=== PATIENT | male | born 1990 | race African-American/Black ===

== ENCOUNTER 2019-03-01 23:22 | Emergency (ER) | payer OTHER, SELFPAY ==
--- NOTE | 2019-03-01 00:10 | DI.RAD_ITS ---
SYMPTOM/DIAGNOSIS: FALL, PAIN IN DIST RAD/ULNA, AND SNUFF BOX. LEFT FOREARM AND LEFT WRIST: 03/01 Four views of the wrist and 2 views of the forearm were obtained. There is an apparent small fracture fragment projected adjacent to the dorsum of the junction of the proximal and distal carpal rows. This may originate from the capitate or hamate but I cannot confirm the exact location of this fracture. Otherwise, the bones appear intact and alignment is within normal limits. No fracture is seen involving the radius or ulna. CONCLUSION: Dorsal carpal fracture fragment, origin uncertain. If clinically indicated additional evaluation with CT can be considered.
--- NOTE | 2019-03-01 00:10 | DI.RAD_ITS ---
SYMPTOM/DIAGNOSIS: FALL, LATERAL KNEE PAIN LEFT KNEE: 03/01 Four views were obtained. No fracture is seen.
[2019-03-01 23:30] VITALS: BP 152/106; PULSE 106; RESP 18; TEMP 36.7; O2SAT 94
[2019-03-01] MEDS: Ibuprofen 800 MG TAB PO (23:40)
[2019-03-01] MEDS: Acetaminophen 500 MG TAB 1000 MG PO (23:41)
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
== END 2019-03-02 01:07 | disposition home or self-care (01) ==
LOC: ER 03-02 01:16
PROVIDERS: Emergency Provider Student in an Organized Health Care Education/Training Program
DX: S62.102A Fracture of unspecified carpal bone, left wrist, initial encounter for closed fracture (principal); M25.562 Pain in left knee; V86.56XA Driver of dirt bike or motor/cross bike injured in nontraffic accident, initial encounter
CPT/HCPCS: 25630; 29505; 73562; 99283; 73090; 73110; 99281; E0114; L1810; L3908

== ENCOUNTER 2022-02-22 23:36 | Emergency (ER) | payer SELFPAY ==
[2022-02-22 23:43] VITALS: BP 171/110; PULSE 83; RESP 16; TEMP 36.3; O2SAT 97
[2022-02-22 23:54] VITALS: BP 157/109
--- NOTE | 2022-02-23 00:08 | ED.GENADUL_ITS ---
Discharge Plan Disposition Patient Disposition: HOME Condition: Stable Discharge Details Clinical Impression: Pustule Primary Care Provider: Clemencia,Local ED Provider: Carlotta Ryder Home Meds and New Rx's Prescriptions: Continued naproxen sodium [Aleve] 220 mg capsule 220 mg PO BID PRN Discharge Instructions Instructions: Blister (ED) Additional Instructions: The cause of your rash is unclear at this time. It may be due to an inflammatory reaction to your tattoo that has become secondarily infected and spread. You were given a prescription antibiotic ointment called mupirocin to apply to the area twice daily on clean and dry skin. You have been placed on care management list to arrange for a follow-up appointment with a primary care doctor to establish care and for reevaluation. Return immediately to the emergency department if you develop any worsening or new concerning symptoms such as fever, body aches, chills, worsening rash or any other concerns. Discharge Data Discharge Physician: Carlotta Ryder Medical Decision Making 32-year-old male presents with mildly tender pustules and crusts noted to his abdomen and left forearm. Blood pressure hypertensive on arrival at 171/110, slightly improved to 157/109. He otherwise is nontoxic-appearing and comfortable. Normal oropharynx. Lungs clear. He has 4 x 4 millimeter crusted pustules and scaling noted on mostly his abdomen and overlying the eyes of the tiger tattoo on his right side of his abdomen in addition to his left forearm. As they are somewhat tender, would suspect secondary bacterial infection. History and presentation does not appear consistent with mild hypoxia as he had no systemic prodrome or report of recent travel. Do not feel indication for lab work at this time. We will treat as a bacterial skin infection with topical mupirocin at this time. Discussed with patient I do not see an indication for oral antibiotics or steroids at this time. Patient placed on care management list to arrange for follow-up appointment with the primary care doctor to establish care and for reevaluation of his lesions and blood pressure. Usual and customary return precautions given prior to discharge. Medical Records Medical records reviewed: Yes I reviewed the patient's medical records. HPI General Mode of arrival: ambulatory . Date/Time Provider Initiated Documentation: 02/22/22 23:53 . Limitations to Documentation: no limitations . Information obtained by: patient . HPI Narrative: Patient is a 32-year-old male presents with mildly tender lesions noted on his abdomen and now left forearm for the past couple weeks. Patient states he first noted tender red bumps located over the eyes of a tiger tattoo that he had placed 2 weeks ago. He states these areas then became larger and dried up and are still mainly only painful to touch. He states since then he has developed similar red bumps on other locations of his abdomen and left forearm that have also now become dried and scaling. He states recently some of these areas have had yellow pus draining from them. He denies any fever, body aches, chills, ear pain, sore throat, nausea, vomiting, diarrhea. He denies any recent travel or known exposure to monkey pox. He denies any new soaps, lotions, detergents or any other new exposures. Related Data Home Medications Medication Instructions Recorded Confirmed naproxen sodium 220 mg capsule 220 mg PO BID PRN 12/20/19 02/22/22 (Aleve) Allergies Allergy/AdvReac Type Severity Reaction Status Date / Time No Known Allergies Allergy Verified 02/22/22 23:47 General Stated Complaint: Cellulitis JOYCELYN: 4 Review of Systems All systems reviewed & are unremarkable except as noted in HPI and below Constitutional Constitutional: Denies chills, Denies excessive sweating, Denies fatigue, Denies fever(s), Denies weakness and Denies weight loss Eyes Eyes: Reports system reviewed and no additional complaints, except as documented and Denies blurry vision ENT Ears, Nose, Mouth, and Throat: Denies vertigo, Denies dizziness, Denies otalgia, Denies nasal congestion, Denies sore throat and Denies throat swelling Cardiovascular Cardiovascular: Denies chest pain, Denies syncope, Denies rapid heart rate and Denies dyspnea Respiratory Respiratory: Denies chest congestion, Denies cough, Denies pain on inspiration and Denies dyspnea Gastrointestinal Gastrointestinal: Denies abdominal pain, Denies diarrhea and Denies vomiting Genitourinary Genitourinary: Denies hematuria, Denies dysuria and Denies flank pain Musculoskeletal Musculoskeletal: Denies back pain and Denies joint swelling Integumentary/Breasts Skin/Breast: Reports lesions and Reports rash Neurologic Neurologic: Denies behavioral changes, Denies confusion, Denies vertigo, Denies dizziness, Denies syncope, Denies localized weakness and Denies weakness Psychiatric Psychiatric: Denies behavioral changes, Denies confusion and Denies depression Endocrine Endocrine: Denies excessive sweating and Denies fatigue Hematologic/Lymphatic Hematologic/Lymphatic: Denies easy bruising and Denies lymphadenopathy Allergic/Immunologic Allergic/Immunologic: Denies throat swelling PFSH All Active Problems (Updated 02/23/22 @ 00:12 by Carlotta Ryder DO) Pustule (Acute) Back pain (Acute) s/p slip and fall. Workers' Compensation case. Avulsion fracture of left wrist (Acute ~03/02/19) Social History Smoking/Tobacco Use Status: Former Tobacco Use Quit status: not considering quitting Smoking risk assessment performed?: Yes Drug use: Occasionally Substance use type: marijuana Details: couple times a week Do you feel safe at home: Yes Do you feel safe in your relationship?: Yes Exam Const General: cooperative and healthy appearing Orientation: alert, awake and oriented x3 HENMT Head: normal to inspection Ears: hearing grossly normal bilaterally and external ears normal General nose exam: external nose normal Face and sinus: normal facial exam Mouth: oral mucosae normal Teeth and gingiva: dentition normal Throat: posterior oropharynx normal Eyes General: appearance normal, both eyes and all related structures Eyelids: eyelids normal Pupils: PERRL EOM: EOM intact bilaterally Neck Neck: normal visual inspection Lymphatic: no lymphadenopathy noted Chest Chest: normal inspection of the chest Resp Effort & Inspection: normal respiratory effort and able to speak in complete sentences Auscultation: clear to auscultation bilaterally Cardio Rate: regular rate Rhythm: regular rhythm GI Inspection: normal to inspection Palpation: soft, not firm, no guarding, no hepatosplenomegaly, no masses and nontender Auscultation: normal bowel sounds Back/Spine/Pelvis Back: no CVA tenderness Skin Other: 4 x 4 millimeter pustules, some with overlyng crust and others more dried and scaling located mostly on the abdomen, but also on the left forearm. Neuro General: patient alert and patient awake Cognition: normal cognition Speech: speech normal Gait: normal gait Motor: muscle tone normal throughout Sensory Exam: no sensory deficits noted Extrem General: normal to inspection, full ROM and capillary refill normal Psych Appearance: grossly normal Mental Status: mental status grossly normal Speech and Movement: speech and movement normal Affect: normal affect Thought Process: normal Course Vital Signs Vital signs: Vital Signs Temperature 97.3 F L 02/22/22 23:43 Pulse 83 02/22/22 23:43 Respiratory Rate 16 02/22/22 23:43 Blood Pressure 171/110 H 02/22/22 23:43 Pulse Oximetry 97 02/22/22 23:43 Temperature 97.3 F L 02/22/22 23:43 Temperature Source Skin 02/22/22 23:43 Pulse 83 02/22/22 23:43 Respiratory Rate 16 02/22/22 23:43 Respiratory Effort Non-Labored 02/22/22 23:48 Blood Pressure 157/109 H 02/22/22 23:54 Pulse Oximetry 97 02/22/22 23:43 Pain Level 10 02/22/22 23:43
--- NOTE | 2022-02-23 01:11 | NUR.NOTE ---
Referral to Care Management to establish pcp for f/u for hypertension and a rash in a couple of weeks.Nursing Note:
--- NOTE | 2022-02-26 09:33 | PDOC.ERCMACT ---
- If Service Date Differs Date of service: 02/26/22 Time of Service: 09:33 Care Management Activity Note John is seen in the ED for a pustule. At the request of ED provider, CM coordinates a referral to HELADIO Reid, of [facility], on-call provider, to assist John in obtaining a follow up appointment and in establishing care with a PCP.
== END 2022-02-23 00:22 | disposition home or self-care (01) ==
PROVIDERS: Emergency Provider Physician Assistant
DX: L08.9 Local infection of the skin and subcutaneous tissue, unspecified (principal); R03.0 Elevated blood-pressure reading, without diagnosis of hypertension; Z87.891 Personal history of nicotine dependence
CPT/HCPCS: 99283; 99284

== ENCOUNTER 2024-09-07 02:22 | Emergency (ER) | payer MEDICAID, SELFPAY ==
[2024-09-07 02:35] VITALS: BP 185/97; PULSE 94; RESP 18; TEMP 37.7; O2SAT 98
--- NOTE | 2024-09-07 03:09 | W.ED.GENAD ---
Discharge Plan Disposition Patient Disposition: Home Condition: Good Discharge Details Clinical Impression: Dermatitis, Cellulitis of both feet Primary Care Provider: Clemencia,Local ED Provider: Guy Javier Home Meds and New Rx's Prescriptions: New prednisone 50 mg tablet 50 mg PO DAILY Qty: 5 0RF hydroxyzine HCl 25 mg tablet 25 mg PO TID PRNQty: 60 0RF clotrimazole-betamethasone 1-0.05 % cream 1 applic topical BID Qty: 15 0RF cephalexin 500 mg tablet 500 mg PO QID 7 Days Qty: 28 0RF Discontinued fluconazole 150 mg tablet 150 mg PO .q6 weeks Patient Comments: TAKE ONE TABLET BY MOUTH ONCE WEEKLY FOR 6 WEEKS No Action naproxen sodium [Aleve] 220 mg capsule 220 mg PO BID PRN permethrin 5 % cream 1 applic TOPICAL Q4D Patient Comments: APPLY TOPICALLY, LEAVE ON FOR 12-14 HOURS THEN RINSE OFF. REPEAT TREATMENT EVERY 4 DAYS UNTIL DONDITION RESOLVED Discharge Instructions Instructions: Skin Rash ED Additional Instructions: At this time I am concerned that you have evidence of notable contact dermatitis. Thankfully there is no current evidence to suggest scabies. Please take the steroid as directed. Is been sent to your pharmacy on file. Please apply the steroid antifungal cream to your feet twice daily. Please take the hydroxyzine/Atarax for itching. Please take the Keflex antibiotic for the superimposed bacterial infection on your feet. Please avoid any other topical irritants at this time. If your symptoms or not improving in the next 4 to 5 days, please contact me at the emergency department and we can formulate a new plan together. If you notice any worsening of your symptoms, or any new symptoms such as vomiting, diarrhea, fever, chills, shortness of breath, chest pain, numbness, weakness, or fainting , please return immediately to the emergency department for reevaluation. Please follow up with your primary care provider as soon as possible for reassessment and reevaluation. As always, it was a pleasure participating in your medical care today. Discharge Data Discharge Date/Time-TO BE ENTERED AT DEPARTURE: 09/07/24 03:35 HPI General Date/Time Provider Initiated Documentation: 09/07/24 03:08. HPI Narrative: 34-year-old male presents today for evaluation of rash. Patient denies any significant past medical history. Patient states that on August 27 he developed a mild rash on his feet only. No rash anywhere else. He went to urgent care and was diagnosed with scabies. (Of note he had not been out of the country, he is a [place], but has never been diagnosed with scabies before. Significant others in his home do not have any similar rash.) He was prescribed permethrin, and took the first topical dose of this over his entire body. He states about 12 hours after the application of the permethrin he had extreme itching all over his body, and developed welts and blisters in the areas of his tattoos which are quite numerous. Symptoms slowly improved over the next few days, and then 5 days later for the scheduled repeat dose of permethrin he again did a total body coverage of the medication and ago developed notable rash with welting and blisters around his tattoos, extreme itching over all of his body, and worsening rash on his feet. On the he went to urgent care again as his symptoms were worsening and he was diagnosed with a fungal infection of his feet, and given a prescription/order for fluconazole. Patient states that despite this the rash on his feet continues to worsen, and he is now getting more blisters and welts on his feet, and additionally nothing is improving on the rest of his skin. He has been using gasoline topically, and he states that this will help the symptoms for a few minutes and then the itching immediately comes back. Related Data Home Medications ?Medication ?Instructions ?Recorded ?Confirmed naproxen sodium 220 mg capsule 220 mg PO BID PRN 12/20/19 09/07/24 (Aleve) cephalexin 500 mg tablet 500 mg PO QID 7 days #28 tabs 09/07/24 clotrimazole-betamethasone 1 1 applic topical BID #15 grams 09/07/24 %-0.05 % topical cream hydroxyzine HCl 25 mg tablet 25 mg PO TID PRN #60 tabs 09/07/24 permethrin 5 % topical cream 1 applic topical Q4D 09/07/24 09/07/24 prednisone 50 mg tablet 50 mg PO DAILY #5 tabs 09/07/24 Previous Rx's ?Medication ?Instructions ?Recorded cephalexin 500 mg tablet 500 mg PO QID 7 days #28 tabs 09/07/24 clotrimazole-betamethasone 1 1 applic topical BID #15 grams 09/07/24 %-0.05 % topical cream hydroxyzine HCl 25 mg tablet 25 mg PO TID PRN #60 tabs 09/07/24 prednisone 50 mg tablet 50 mg PO DAILY #5 tabs 09/07/24 Allergies Allergy/AdvReac Type Severity Reaction Status Date / Time No Known Allergies Allergy Verified 09/07/24 02:41 General Stated Complaint: RashLesion JOYCELYN: 4 Exam Narrative Exam Narrative: 1.Const: Well-nourished, Well-developed, appearing stated age 2.Eyes: PERRL, no conjunctival injection, and symmetrical lids. 3.ENT: Atraumatic external nose and ears. Moist MM. Neck: Symmetric, trachea midline, No thyromegaly. 4.CVS: +S1/S2, Peripheral pulses 2+ and equal in all extremities. Brisk capillary refill in all extremities. 5.RESP: Unlabored respiratory effort. Clear to auscultation bilaterally. No wheezes rales or rhonchi 6.GI: Soft, Nontender/Nondistended, No hepatosplenomegaly. No guarding or rebound. 7.MSK: Normocephalic/Atraumatic, Extremities w/o deformity or ttp No cyanosis or clubbing, Normal movement of all extremities 8.Skin: Patient demonstrates dry somewhat scaly skin throughout his upper extremities, on his feet he demonstrates mild erythema over the great toes medially, with multiple small vesicles and bullae some of which have pus, and some of which have strange. Vesicles are actively oozing. Mild edema in the lower feet bilaterally. In the area of his tattoos there is mild urticarial-like welts that are present, with no erythema vesicles or bullae. Negative Nikolsky sign. No large vesicles or bulla. No palpable purpura. No oral lesions. No mucosal lesions. No evidence of severe cellulitis. No evidence of vaccine preventable rash. 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 Sensation grossly intact, no focal neurologic deficits. 10.Psych: (AAO) x3. Appropriate mood and affect Course Vital Signs Vital signs: Vital Signs Temperature 37.7 C H 09/07/24 02:35 Pulse 94 H 09/07/24 02:35 Respiratory Rate 18 09/07/24 02:35 Blood Pressure 185/97 H 09/07/24 02:35 Pulse Oximetry 98 09/07/24 02:35 Temperature 37.7 C H 09/07/24 02:35 Temperature Source Temporal Artery Scan 09/07/24 02:35 Pulse 94 H 09/07/24 02:35 Respiratory Rate 18 09/07/24 02:35 Blood Pressure 185/97 H 09/07/24 02:35 Blood Pressure Position Sitting 09/07/24 02:35 Pulse Oximetry 98 09/07/24 02:35 Oxygen Delivery Method Room Air 09/07/24 02:35 Oxygen Flow Rate 0 09/07/24 02:35 Pain Level 10 09/07/24 02:35 Medical Decision Making 34-year-old male presents today for evaluation of rash. Patient denies any significant past medical history. Patient states that on August 27 he developed a mild rash on his feet only. No rash anywhere else. He went to urgent care and was diagnosed with scabies. (Of note he had not been out of the country, he is a [place], but has never been diagnosed with scabies before. Significant others in his home do not have any similar rash.) He was prescribed permethrin, and took the first topical dose of this over his entire body. He states about 12 hours after the application of the permethrin he had extreme itching all over his body, and developed welts and blisters in the areas of his tattoos which are quite numerous. Symptoms slowly improved over the next few days, and then 5 days later for the scheduled repeat dose of permethrin he again did a total body coverage of the medication and ago developed notable rash with welting and blisters around his tattoos, extreme itching over all of his body, and worsening rash on his feet. On the he went to urgent care again as his symptoms were worsening and he was diagnosed with a fungal infection of his feet, and given a prescription/order for fluconazole. Patient states that despite this the rash on his feet continues to worsen, and he is now getting more blisters and welts on his feet, and additionally nothing is improving on the rest of his skin. He has been using gasoline topically, and he states that this will help the symptoms for a few minutes and then the itching immediately comes back. Patient demonstrates dry somewhat scaly skin throughout his upper extremities, on his feet he demonstrates mild erythema over the great toes medially, with multiple small vesicles and bullae some of which have pus, and some of which have strange. Vesicles are actively oozing. Mild edema in the lower feet bilaterally. In the area of his tattoos there is mild urticarial-like welts that are present, with no erythema vesicles or bullae. Negative Nikolsky sign. No large vesicles or bulla. No palpable purpura. No oral lesions. No mucosal lesions. No evidence of severe cellulitis. No evidence of vaccine preventable rash. Aside for the feet, there is no evidence of intertriginous scabies lines between the fingers, at the elbow, or by the knee. His feet seem to demonstrate a notable contact dermatitis like pattern with a potential mild fungal component and definitely superimposed cellulitis around the great toes bilaterally. For the rest of his body he demonstrates notably dry skin, and what appears to be a mild contact dermatitis throughout. No active vesicles or blisters otherwise. Symptoms at this time do not appear to be related to scabies. There may be a mild fungal component on the feet but there is definitely concerning cellulitis which requires treatment. Will recommend avoidance of continued irritating applications of gasoline. Will give a short course of steroids, we will give a topical antifungal steroid cream for the feet, Keflex for the cellulitis. Will recommend close follow-up for reassessment in 5 days. No current clinical evidence of staph scalded skin syndrome, erythema multiforme, erythema migrans, toxic epidermal necrolysis, Norwood-Michael syndrome, Kawasaki-like rash, meningococcemia, pemphigus vulgaris, or necrotizing fasciitis. I have extensively reviewed the treatment plan and discharge instructions with the patient. I have addressed all patient concerns at this time. The patient was made aware of what symptoms to monitor for that would warrant a return to the emergency department. Discussed the plan with the patient, they demonstrate verbal understanding and agreement with our assessment and plan at this time. The documentation in this chart was dictated using [employer] dictation software. Please excuse any dictation errors. Quality:SDOH Health Related Social Needs: No Data to Display PFSH All Active Problems (Updated 09/07/24 @ 03:10 by Guy Javier DO) Cellulitis of both feet (Acute) Dermatitis (Acute) Back pain (Acute) s/p slip and fall. Workers' Compensation case. Avulsion fracture of left wrist (Acute ~03/02/19) Social History Smoking/Tobacco Use Status: Former Tobacco Use Quit status: not considering quitting Smoking risk assessment performed?: Yes Drug use: Occasionally Substance use type: marijuana Details: couple times a week Housing: house Do you feel safe at home: Yes Do you feel safe in your relationship?: Yes
[2024-09-07] MEDS: Cephalexin 500 MG CAP PO (03:19)
[2024-09-07] MEDS: predniSONE 20 MG TAB 60 MG PO (03:19)
[2024-09-07] MEDS: hydrOXYzine HCL 50 MG TAB PO (03:27)
== END 2024-09-07 03:35 | disposition home or self-care (01) ==
LOC: ER 03:36
PROVIDERS: Emergency Provider Student in an Organized Health Care Education/Training Program
DX: L03.115 Cellulitis of right lower limb (principal); L03.116 Cellulitis of left lower limb; L30.9 Dermatitis, unspecified
CPT/HCPCS: 99283; 99284; J3490; J7512

== ENCOUNTER 2024-09-23 00:18 | Emergency (ER) | payer MEDICAID, SELFPAY ==
[2024-09-23 00:28] VITALS: BP 221/85; PULSE 86; RESP 18; TEMP 37.4; O2SAT 98
--- NOTE | 2024-09-23 01:30 | RT.EKG_ITS ---
APPROVED REPORT Exam: Resting ECG Reason for Exam: hypertension, palpitations Patient Location: E HR:71 bpm ECG Measurements Heart Rate 71 AXIS AL 143 P 63 QRSd 81 QRS 15 QT 370 T 51 QTc 402 Conclusion Sinus rhythm...normal P axis, V-rate 60- 99
[2024-09-23] MEDS: Lisinopril 20 MG TAB PO (02:01)
[2024-09-23] MEDS: predniSONE 20 MG TAB 40 MG PO (02:01)
[2024-09-23] MEDS: Ciprofloxacin 500 MG TAB PO (02:01)
[2024-09-23 02:10] LABS: Abs Immature Grans 0.06 10^3/uL (0.0-0.06); Absolute Eosinophil Count 0.52 10^3/uL (0.0-0.7); Absolute Lymphocyte Count 2.12 10^3/uL (1.2-3.4); Absolute Monocyte Count 0.83 10^3/uL (0.1-0.8); Absolute Neutrophil Count 8.24 10^3/uL (1.2-6.7); Basophils % 0.8 %; Eosinophils % 4.4 %; HCT 46.6 % (40.0-50.0); HGB 15.3 g/dL (13.5-17.5); Immature Grans % 0.5 %; Lymphocytes % 17.9 %; MCHC 32.8 % (32.0-36.0); MCV 88 fL (80-95); MPV 8.9 fL (8.0-11.0); Neutrophils % 69.4 %; Platelet Count 362 10^3/uL (130-400); RBC 5.27 10^6/uL (4.36-5.78); RDW 12.6 % (11.8-14.1); RDW-SD 41.2 fL; WBC 11.87 10^3/uL (4.4-10.8)
[2024-09-23 02:12] LABS: Absolute Basophil Count 0.09 10^3/uL (0.0-0.2)
[2024-09-23 02:13] VITALS: BP 156/84
[2024-09-23 02:23] LABS: ALT 35 U/L (16-63); AST 12 U/L (15-37); Albumin 3.7 g/dL (3.4-5.0); Alkaline Phosphatase 100 U/L (46-116); Anion Gap 4.2 mmol/L (3-11); BUN 15 mg/dL (7-18); Bilirubin, Total 0.31 mg/dL (0.2-1.0); CO2 28.8 mmol/L (21.0-32.0); CREATININE 1.3 mg/dL (0.70-1.30); Calcium 9.1 mg/dL (8.5-10.1); Chloride 105 mmol/L (98-107); Estimated GFR 73.47 (mL/min/1.73m2); Glucose 125 mg/dL (74-106); Potassium 4.3 mmol/L (3.5-5.1); Sodium 138 mmol/L (136-145); Total Protein 7.9 g/dL (6.4-8.2); Troponin I 4 ng/L (<or=76)
--- NOTE | 2024-09-23 03:13 | W.ED.GENAD ---
Discharge Plan Disposition Patient Disposition: Home Discharge Details Clinical Impression: Eczema, dyshidrotic, Hypertension, Anxiety about health Primary Care Provider: Clemencia,[facility] ED Provider: Sarbjit Crowell Home Meds and New Rx's Prescriptions: New prednisone 10 mg tablet 10 mg PO DIRECTED Qty: 48 0RF Rx Instructions: Take 4 tablets daily for 5 days, followed by 3 tablets daily for 5 days, followed by 2 tablets daily for 5 days, followed by half a tablet daily for 5 days lisinopril 20 mg tablet 20 mg PO DAILY Qty: 30 0RF ciprofloxacin HCl [Cipro] 500 mg tablet 500 mg PO BID Qty: 20 0RF No Action permethrin 5 % cream 1 applic TOPICAL Q4D Patient Comments: APPLY TOPICALLY, LEAVE ON FOR 12-14 HOURS THEN RINSE OFF. REPEAT TREATMENT EVERY 4 DAYS UNTIL DONDITION RESOLVED clotrimazole-betamethasone 1-0.05 % cream 1 applic topical BID Qty: 15 0RF Discharge Instructions Instructions: Controlling your blood pressure through lifestyle, Skin Rash ED Additional Instructions: Take the prednisone as directed by the taper. This is a decreasing number of tablets over the course of 20 days. Take 1 Cipro tablet every 12 hours, for the next 10 days. This is an antibiotic that will prevent any secondary skin infections in your hands and feet that might be acquired from hot tub use. Take 1 lisinopril tablet daily, until you follow-up with your primary care doctor and discuss possible changes to medical management for your high blood pressure. You should try to take your blood pressure a few times a day over the course of several days to keep a diary for your upcoming primary care appointment while taking this medication. 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 You can always return to the ER for any new concerns or sudden changes in your health which you feel require emergency medical attention Discharge Data Discharge Physician: Sarbjit Crowell [facility] General Date/Time Provider Initiated Documentation: 09/23/24 00:25. HPI Narrative: The patient is a 34-year-old male, who presents the emergency department this evening with complaints of ongoing nodular rash with intermittent desquamation and crusting of the skin on the lateral aspects of his feet and on the fingers. The patient was treated with topical permethrin without any improvement. The patient did improve with glucocorticoid steroid burst but redeveloped symptoms after the first was discontinued. The patient used a topical glucocorticoid cream with some marginal improvement in his discomfort and rash. The patient is also concerned that he has ongoing high blood pressure and reports that he intermittently gets anxious about it and this causes him to have palpitations. The patient is significantly hypertensive here in the emergency room. The patient tells me that he has been in and out of hot tubs at a local hotel quite a few times recently and was concerned that he had developed a rash related to the hot tubs. Related Data Home Medications ?Medication ?Instructions ?Recorded ?Confirmed clotrimazole-betamethasone 1 1 applic topical BID #15 grams 09/07/24 09/23/24 %-0.05 % topical cream permethrin 5 % topical cream 1 applic topical Q4D 09/07/24 09/23/24 ciprofloxacin HCl 500 mg tablet 500 mg PO BID #20 tabs 09/23/24 (Cipro) lisinopril 20 mg tablet 20 mg PO DAILY #30 tabs 09/23/24 prednisone 10 mg tablet 10 mg PO DIRECTED #48 tabs 09/23/24 Previous Rx's ?Medication ?Instructions ?Recorded clotrimazole-betamethasone 1 1 applic topical BID #15 grams 09/07/24 %-0.05 % topical cream ciprofloxacin HCl 500 mg tablet 500 mg PO BID #20 tabs 09/23/24 (Cipro) lisinopril 20 mg tablet 20 mg PO DAILY #30 tabs 09/23/24 prednisone 10 mg tablet 10 mg PO DIRECTED #48 tabs 09/23/24 Allergies Allergy/AdvReac Type Severity Reaction Status Date / Time No Known Allergies Allergy Verified 09/23/24 00:30 General Stated Complaint: RashLesion JOYCELYN: 4 Exam Const General: cooperative, healthy appearing and no acute distress Resp Effort & Inspection: normal respiratory effort and able to speak in complete sentences Auscultation: clear to auscultation bilaterally Cardio Rate: regular rate Rhythm: regular rhythm Skin Other: There are multiple tiny nodular lesions on the fingers and toes bilaterally with excoriation changes, confluence with skin sloughing and granulation tissue formation, predominantly on the lateral feet. There is relative sparing of the palms and soles. Neuro General: patient alert, patient oriented x3, gait normal, moves all extremities, no focal motor deficits and CN's II-XI intact bilaterally Course Vital Signs Vital signs: Vital Signs Temperature 37.4 C 09/23/24 00:28 Pulse 86 09/23/24 00:28 Respiratory Rate 18 09/23/24 00:28 Blood Pressure 221/85 H 09/23/24 00:28 Pulse Oximetry 98 09/23/24 00:28 Temperature 37.4 C 09/23/24 00:28 Temperature Source Temporal Artery Scan 09/23/24 00:28 Pulse 86 09/23/24 00:28 Respiratory Rate 18 09/23/24 00:28 Blood Pressure 156/84 H 09/23/24 02:13 Blood Pressure Position Sitting 09/23/24 00:28 Pulse Oximetry 98 09/23/24 00:28 Oxygen Delivery Method Room Air 09/23/24 00:28 Oxygen Flow Rate 0 09/23/24 00:28 Pain Level 0 09/23/24 02:13 Comment RN notified 09/23/24 02:13 Lab/Test Results Lab/Test Results: Laboratory Tests Range/Units 09/23/24 02:01 WBC (4.4-10.8) 10^3/uL 11.87 H RBC (4.36-5.78) 10^6/uL 5.27 Hgb (13.5-17.5) g/dL 15.3 Hct (40.0-50.0) % 46.6 MCV (80-95) fL 88 MCH (27.0-33.0) pg 29.0 MCHC (32.0-36.0) % 32.8 RDW (11.8-14.1) % 12.6 Plt Count (130-400) 10^3/uL 362 MPV (8.0-11.0) fL 8.9 Immature Gran % % 0.5 Neutrophils % % 69.4 Lymphocytes % % 17.9 Monocytes % % 7.0 Eosinophils % % 4.4 Basophils % % 0.8 Nucleated RBC % (0.0-0.3) % 0.0 Absolute Neutrophils (1.2-6.7) 10^3/uL 8.24 H Absolute Lymphocytes (1.2-3.4) 10^3/uL 2.12 Absolute Monocytes (0.1-0.8) 10^3/uL 0.83 H Absolute Eosinophils (0.0-0.7) 10^3/uL 0.52 Absolute Basophils (0.0-0.2) 10^3/uL 0.09 Sodium (136-145) mmol/L 138 Potassium (3.5-5.1) mmol/L 4.3 Chloride (98-107) mmol/L 105 Carbon Dioxide (21.0-32.0) mmol/L 28.8 Anion Gap (3-11) mmol/L 4.2 BUN (7-18) mg/dL 15 Creatinine (0.70-1.30) mg/dL 1.3 Est GFR (CKD-EPI 2020) (mL/min/1.73m2) 73.47 Glucose (74-106) mg/dL 125 H Calcium (8.5-10.1) mg/dL 9.1 Total Bilirubin (0.2-1.0) mg/dL 0.31 AST (15-37) U/L 12 L ALT (16-63) U/L 35 Alkaline Phosphatase (46-116) U/L 100 Troponin I (<or=76) ng/L 4 Total Protein (6.4-8.2) g/dL 7.9 Albumin (3.4-5.0) g/dL 3.7 Medical Decision Making The patient was seen and examined. The hands and feet look like somewhat decompensated dyshidrotic eczema. I am somewhat concerned the patient could have acquired a secondary bacterial infection related to the intermittent hot tub use at a local hotel. The patient was quite anxious about his blood pressure and was concerned that he was having some unstable heart disease. His EKG and laboratory findings were very reassuring. The patient was given oral prednisone here, which we prescribed as a taper as he improves significantly with this during his last presentation. He will be given a prescription for oral Cipro to take for 10 days to prevent any secondary bacterial infection from possible community-acquired sources from the hot tubs at a local hotel. I will begin the patient on 20 mg of oral lisinopril as a bridge to primary care follow-up. I discussed arranging close primary care follow-up with the unit assistant who will connect the patient with a local doctor that can see him for further and ongoing management. Quality:SDOH Health Related Social Needs: No Data to Display PFSH All Active Problems (Updated 09/23/24 @ 03:35 by Sarbjit Crowell MD) Anxiety about health (Acute) Hypertension (Chronic) Eczema, dyshidrotic (Acute) Cellulitis of both feet (Acute) Dermatitis (Acute) Back pain (Acute) s/p slip and fall. Workers' Compensation case. Avulsion fracture of left wrist (Acute ~03/02/19) Social History Smoking/Tobacco Use Status: Former Tobacco Use Quit status: not considering quitting Smoking risk assessment performed?: Yes Drug use: Occasionally Substance use type: marijuana Details: couple times a week Housing: house Do you feel safe at home: Yes Do you feel safe in your relationship?: Yes
[2024-09-23 03:37] VITALS: BP 150/82; PULSE 82; RESP 18; TEMP 36.8; O2SAT 96
--- NOTE | 2024-09-23 09:35 | NUR.NOTE ---
Access chart to reconcile EKG orders with EKGs in [employer]. EKG in [employer] needs to be read. Nursing Note:
== END 2024-09-23 03:57 | disposition home or self-care (01) ==
LOC: ER 04:07
PROVIDERS: Emergency Provider Emergency Medicine Emergency Medical Services
DX: L30.1 Dyshidrosis [pompholyx] (principal); I10 Essential (primary) hypertension; F41.9 Anxiety disorder, unspecified
CPT/HCPCS: 80053; 93005; 99283; 84484; 85025; 93010; J7512

== ENCOUNTER 2025-07-25 13:52 | Outpatient (REF) | payer MEDICAID, SELFPAY ==
--- NOTE | 2025-07-25 11:46 | SKI_PTH ---
PATIENT: John Jara LOC: [facility] U#:[id number] AGE/SX: 35/M ROOM: RE07/25/[address]: Mary Dunaway NP : 1990 BED: DIS: 07/25/2025 SPEC #: [id number] RECD: 07/26/25 12:44 STATUS: ROGELIO KHALIL #: [id number] ELVIN: 07/25/25 11:[address]: Mary Dunaway DEPT: Surgical Specimen RECD BY: Josy Smith Tissues: 1 - SKIN BIOPSY(SHAVE/PUNCH) 2 - SKIN BIOPSY(SHAVE/PUNCH) Procedures: SKIN LEVEL 4 Comments: [id number]
== END 2025-07-25 13:53 | disposition home or self-care (01) ==
LOC: LBN 13:52
PROVIDERS: PCP Nurse Practitioner Family; Visit Provider Nurse Practitioner Family
DX: R23.4 Changes in skin texture (principal)
CPT/HCPCS: 88305

== ENCOUNTER 2025-08-08 18:23 | Outpatient (REF) | payer MEDICAID, SELFPAY | END 2025-08-08 18:24 | disposition home or self-care (01) | LOC: LBN 18:23 | PROVIDERS: PCP Nurse Practitioner Family; Visit Provider Nurse Practitioner Family | DX: R23.4 Changes in skin texture (principal) | CPT/HCPCS: 87101; 87102; 87206; 87070 ==